=== PATIENT | male | born 1955 | race Caucasian/White ===

== ENCOUNTER 2018-12-09 16:56 | Inpatient (IN) | payer OTHER, SELFPAY ==
[~2018-12-09 16:56] MED LIST: ISOVUE-370 76%-LOCM 1 ML ONE
[2018-12-09] MEDS ORDERED: Adacel (T-DAP) 0.5 ML SYRINGE ONE ×2 (17:05→17:10)
[2018-12-09 17:10] LABS: #Basophils 0.1 thou/uL (0.0-0.2); #Eosinphils 0.5 thou/uL (0.0-0.7); #Lymphocytes 2.8 thou/uL (1.20-3.40); #Monocytes 0.6 thou/uL (0.11-0.59); #Neutrophils 7.6 thou/uL (1.40-6.50); %Basophils 0.5 % (0.0-1.0); %Lymphocytes 24.3 % (21.0-51.0); %Neutrophils 66.2 % (42.0-75.0); Hemoglobin 14.6 g/dL (14.0-18.0); Mean Corpuscular HGB CONC 33.6 g/dL (32.0-36.0); Mean Corpuscular Hemoglobin 32.3 pg (27.0-31.0); Mean Corpuscular Volume 96.1 fL (78.0-98.0); Mean Platelet Volume 7.3 fL (7.4-10.4); Platelet Count 380 thou/uL (130-400); RBC Distribution Width 12.2 % (11.5-14.5); Red Blood Cell (RBC) Count 4.52 mill/uL (4.70-6.10); White Blood Cell (WBC) Count 11.5 thou/uL (4.8-10.8)
[2018-12-09 17:55] LABS: ALT (SGPT) 22 U/L (8-55); AST (SGOT) 20 U/L (5-34); Albumin 4.1 g/dL (3.4-4.8); Alkaline Phosphatase 57 U/L (40-150); Anion Gap 13 mmol/L (10-20); BUN (Urea Nitrogen) 10 mg/dL (8.4-25.7); Bilirubin, Total 0.5 mg/dL (0.2-1.2); CK (CPK) 119 U/L (30-200); Calc. Creatinine Clearance 0 mL/min (70-130); Calcium 9.5 mg/dL (7.8-10.44); Carbon Dioxide 23 mmol/L (23-31); Chloride 105 mmol/L (98-107); Estimated GFR-MDRD 69; Globulin 2.9 g/dL (2.4-3.5); Glucose 213 mg/dL (80-115); Lipase 25 U/L (8-78); Potassium 4.2 mmol/L (3.5-5.1); Sodium 137 mmol/L (136-145)
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
[2018-12-09] MEDS ORDERED: Ondansetron PF 4 MG/2 ML Vial ONE (18:06)
[2018-12-09] MEDS ORDERED: Morphine 4 MG/ML VIAL ONE (18:06)
[2018-12-09 18:12] LABS: Bilirubin Negative (Negative); Blood, Urine Negative (Negative); Clarity Clear (Clear); Glucose, Urine (Dipstick) 100 mg/dL (Negative); Leukocyte Negative Leu/uL (Negative); Nitrite Negative (Negative); Protein, Urine (Dipstick) Negative (Neg-Trace); Urobilinogen Normal mg/dL (Less than 2)
[2018-12-09] MEDS ORDERED: traMADol HCl 50 MG TAB ONE (18:49)
[2018-12-09] MEDS ORDERED: Triple Antibiotic Oint 1 GM Packet ONE (18:49)
[2018-12-09] MEDS ORDERED: Lidocaine 1% (PF) 30 ML VIAL ONE (18:49)
[2018-12-09] MEDS ORDERED: Promethazine HCl 25 MG/ML VIAL IM PRN (19:17)
[2018-12-09] MEDS ORDERED: hydrALAZINE 20 MG/ML VIAL SLOW IVP PRN (19:17)
[2018-12-09] MEDS ORDERED: Ondansetron PF 4 MG/2 ML Vial IVP PRN (19:17)
[2018-12-09] MEDS ORDERED: Dextrose 5% in Water 1,000 ML IV PRN (19:17)
[2018-12-09] MEDS ORDERED: Dextrose 50% Abboject 50 ML SYRINGE SLOW IVP PRN (19:17)
[2018-12-09] MEDS ORDERED: Morphine 2 MG/ML SYRINGE SLOW IVP PRN (19:17)
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
[2018-12-09] MEDS ORDERED: Cyclobenzaprine 10 MG TAB PO PRN (19:20)
[2018-12-09] MEDS ORDERED: traMADol HCl 50 MG TAB PO PRN (19:20)
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
[2018-12-09 19:49] LABS: Amphetamine Not Detected (NotDetected); Barbiturates Screen Not Detected (NotDetected); Benzodiazepine Screen Not Detected (NotDetected); Cocaine Metabolite Screen Not Detected (NotDetected); Medtox Control Line Valid? VALID (VALID); Medtox Reader # READER 1; Methadone Not Detected (NotDetected); Methamphetamine Not Detected (NotDetected); Opiate Screen Not Detected (NotDetected); Oxycodone Screen Not Detected (NotDetected); Phencyclidine (PCP) Not Detected (NotDetected); THC/Cannabinoid Screen Not Detected (NotDetected); Tricyclic Screen Not Detected (NotDetected)
--- NOTE | 2018-12-09 19:56 | RAD ---
XR Hand Rt 3 View STANDARD HISTORY: Trauma to hand COMPARISON: None. FINDINGS: There are mild arthritic changes of the hand demonstrated. Also some arthritic changes of t he wrist. 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 There are no signs of fracture or dislocation. There is a small bony density on the dorsal side of the distal interphalange al joint of the middle finger. I would favor that this is related to some arthritic change in this region rather than an avulsion fracture but clinical correlation as to any pain specifically related to this area is recommended. IMPRESSION: Findings as described above.
[2018-12-09] MEDS: Ibuprofen 800 MG TAB PO SCH (21:20)
[2018-12-09] MEDS: Gabapentin 100 MG CAP PO SCH (21:20)
[2018-12-09] MEDS: Senokot S 8.6-50 MG TAB PO SCH (21:20)
[2018-12-09] MEDS: Triple Antibiotic Ointment 30 GM TUBE TOP SCH (21:42)
[2018-12-09] MEDS: Silver Sulfadiazine 1% Cream 50 GM TUBE TP SCH (21:43)
[2018-12-09 21:52] VITALS: BMI 23.7
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
[2018-12-09] MEDS: Acetaminophen 500 MG TAB PO SCH (23:18)
[2018-12-09] MEDS: traMADol HCl 50 MG TAB PO SCH (23:18)
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
[2018-12-10 04:19] LABS: #Eosinphils 0.1 thou/uL (0.0-0.7); #Lymphocytes 1.5 thou/uL (1.20-3.40); #Monocytes 0.8 thou/uL (0.11-0.59); #Neutrophils 13.3 thou/uL (1.40-6.50); %Eosinophils 0.3 % (0.0-10.0); %Lymphocytes 9.8 % (21.0-51.0); %Monocytes 5.1 % (0.0-10.0); %Neutrophils 84.7 % (42.0-75.0); Hemoglobin 13.4 g/dL (14.0-18.0); Mean Corpuscular HGB CONC 33.5 g/dL (32.0-36.0); Mean Corpuscular Hemoglobin 32.4 pg (27.0-31.0); Mean Corpuscular Volume 96.9 fL (78.0-98.0); Mean Platelet Volume 7.5 fL (7.4-10.4); Platelet Count 279 thou/uL (130-400); RBC Distribution Width 12.3 % (11.5-14.5); Red Blood Cell (RBC) Count 4.12 mill/uL (4.70-6.10); White Blood Cell (WBC) Count 15.7 thou/uL (4.8-10.8)
[2018-12-10 04:32] LABS: Phosphorus 4.3 mg/dL (2.3-4.7)
[2018-12-10 04:36] LABS: Anion Gap 11 mmol/L (10-20); BUN (Urea Nitrogen) 14 mg/dL (8.4-25.7); Calc. Creatinine Clearance 62 mL/min (70-130); Carbon Dioxide 25 mmol/L (23-31); Chloride 102 mmol/L (98-107); Estimated GFR-MDRD 64; Glucose 247 mg/dL (80-115); Magnesium 2.2 mg/dL (1.6-2.6); Potassium 4.3 mmol/L (3.5-5.1); Sodium 134 mmol/L (136-145)
[2018-12-10] MEDS: traMADol HCl 50 MG TAB PO SCH ×4 (05:40→23:31)
[2018-12-10] MEDS: Acetaminophen 500 MG TAB PO SCH ×4 (05:41→23:31)
[2018-12-10] MEDS: Ibuprofen 800 MG TAB PO SCH ×3 (05:42→21:31)
--- NOTE | 2018-12-10 08:06 | RAD ---
XR Shoulder Lt 3 View STANDARD History: Pain. Trauma. Comparison: CT prior day Findings: Essentially nondisplaced left scapular body fracture. Normal glenohumeral alignment. Fractu re does extend to the articular surface of the glenoid. Similar appearance left rib fractures without significant pneumothorax. Impression: Nondisplaced left scapular body fracture extending to the anterior inferior articular arturo face of the glenoid.
[2018-12-10] MEDS ORDERED: Dextrose 50% Abboject 50 ML SYRINGE IVP PRN (08:16)
[2018-12-10] MEDS ORDERED: Dextrose 5% in Water 1,000 ML IV PRN (08:16)
[2018-12-10] MEDS: Silver Sulfadiazine 1% Cream 50 GM TUBE TP SCH (08:24)
[2018-12-10] MEDS: Triple Antibiotic Ointment 30 GM TUBE TOP SCH ×2 (08:24→21:09)
[2018-12-10] MEDS: Polyethylene Glycol 3350 17 GM Packet PO SCH (08:41)
[2018-12-10] MEDS: Senokot S 8.6-50 MG TAB PO SCH ×2 (08:42→21:08)
[2018-12-10] MEDS: Zinc Sulfate 220 MG CAP PO SCH (08:42)
[2018-12-10] MEDS: Enoxaparin Sodium 40 MG/0.4 ML SYRINGE SC SCH (08:42)
[2018-12-10] MEDS: Ascorbic Acid 500 mg Chewable Tablet PO SCH (08:42)
[2018-12-10] MEDS: Gabapentin 100 MG CAP PO SCH ×3 (08:42→21:08)
[2018-12-10 08:51] LABS: Hemoglobin A1c 8.8 % (4.0-6.0)
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
[2018-12-10] MEDS ORDERED: CEFAZOLIN 2 GM in Premix Bag 1 BAG IVPB SCH (09:45)
[2018-12-10] MEDS ORDERED: CEFAZOLIN 2 GM, Admixture Fee 1 EACH in Sodium Chloride 0.9% 100 ML IVPB SCH (10:00)
[2018-12-10] MEDS: Sodium Chloride 0.9% 1,000 ML IV SCH ×3 (11:05→23:36)
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
[2018-12-10] MEDS: Bacitracin 1 PK TOP SCH ×2 (14:05→21:09)
[2018-12-10] MEDS: Insulin Regular 300 UNITS/3 ML VIAL SC PRN (21:31)
[2018-12-10] MEDS: Silver Sulfadiazine 1% Cream 50 GM JAR TOP SCH (21:35)
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
[2018-12-11] MEDS: Ibuprofen 800 MG TAB PO SCH ×3 (05:34→22:43)
[2018-12-11] MEDS: Acetaminophen 500 MG TAB PO SCH ×4 (05:34→23:55)
[2018-12-11] MEDS: traMADol HCl 50 MG TAB PO SCH ×3 (05:34→18:13)
[2018-12-11] MEDS: Sodium Chloride 0.9% 1,000 ML IV SCH (06:04)
[2018-12-11 06:33] LABS: Anion Gap 12 mmol/L (10-20); BUN (Urea Nitrogen) 14 mg/dL (8.4-25.7); Calc. Creatinine Clearance 84 mL/min (70-130); Calcium 8.1 mg/dL (7.8-10.44); Carbon Dioxide 21 mmol/L (23-31); Chloride 104 mmol/L (98-107); Estimated GFR-MDRD 90; Glucose 112 mg/dL (80-115); Phosphorus 2.8 mg/dL (2.3-4.7); Potassium 3.9 mmol/L (3.5-5.1); Sodium 133 mmol/L (136-145)
[2018-12-11] MEDS: Ascorbic Acid 500 mg Chewable Tablet PO SCH (09:15)
[2018-12-11] MEDS: Polyethylene Glycol 3350 17 GM Packet PO SCH (09:15)
[2018-12-11] MEDS: Zinc Sulfate 220 MG CAP PO SCH (09:15)
[2018-12-11] MEDS: Enoxaparin Sodium 40 MG/0.4 ML SYRINGE SC SCH (09:15)
[2018-12-11] MEDS: Senokot S 8.6-50 MG TAB PO SCH ×2 (09:15→22:40)
[2018-12-11] MEDS: Gabapentin 100 MG CAP PO SCH ×3 (09:15→22:40)
[2018-12-11] MEDS: Bacitracin 1 PK TOP SCH ×2 (09:22→14:53)
[2018-12-11] MEDS: Silver Sulfadiazine 1% Cream 50 GM JAR TOP SCH ×2 (09:23→22:43)
[2018-12-11] MEDS: Triple Antibiotic Ointment 30 GM TUBE TOP SCH ×2 (11:12→22:44)
[2018-12-11] MEDS: metFORMIN XR 500 MG TAB PO SCH (16:47)
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
[2018-12-11] MEDS: Triple Antibiotic Oint 1 GM Packet TOP SCH (22:42)
[2018-12-11] MEDS: Insulin Regular 300 UNITS/3 ML VIAL SC PRN (23:55)
[2018-12-12 04:51] LABS: #Basophils 0.1 thou/uL (0.0-0.2); #Eosinphils 0.7 thou/uL (0.0-0.7); #Lymphocytes 1.8 thou/uL (1.20-3.40); #Monocytes 0.8 thou/uL (0.11-0.59); #Neutrophils 5.7 thou/uL (1.40-6.50); %Basophils 0.6 % (0.0-1.0); %Eosinophils 7.4 % (0.0-10.0); %Monocytes 9.3 % (0.0-10.0); %Neutrophils 62.9 % (42.0-75.0); Mean Corpuscular HGB CONC 34.8 g/dL (32.0-36.0); Mean Corpuscular Hemoglobin 33.7 pg (27.0-31.0); Mean Corpuscular Volume 96.8 fL (78.0-98.0); Mean Platelet Volume 7.7 fL (7.4-10.4); Platelet Count 210 thou/uL (130-400); Red Blood Cell (RBC) Count 3.26 mill/uL (4.70-6.10)
[2018-12-12 05:07] LABS: Anion Gap 11 mmol/L (10-20); BUN (Urea Nitrogen) 11 mg/dL (8.4-25.7); Calc. Creatinine Clearance 91 mL/min (70-130); Calcium 8.5 mg/dL (7.8-10.44); Carbon Dioxide 23 mmol/L (23-31); Chloride 109 mmol/L (98-107); Estimated GFR-MDRD Greater than 90; Glucose 120 mg/dL (80-115); Magnesium 2.2 mg/dL (1.6-2.6); Phosphorus 2.4 mg/dL (2.3-4.7); Sodium 139 mmol/L (136-145)
[2018-12-12] MEDS: Ibuprofen 800 MG TAB PO SCH ×3 (06:30→21:45)
[2018-12-12] MEDS: traMADol HCl 50 MG TAB PO SCH ×5 (06:30→23:54)
[2018-12-12] MEDS: Acetaminophen 500 MG TAB PO SCH ×4 (06:30→23:54)
[2018-12-12] MEDS: Polyethylene Glycol 3350 17 GM Packet PO SCH (08:37)
[2018-12-12] MEDS: Enoxaparin Sodium 40 MG/0.4 ML SYRINGE SC SCH (08:37)
[2018-12-12] MEDS: Ascorbic Acid 500 mg Chewable Tablet PO SCH (08:38)
[2018-12-12] MEDS: Senokot S 8.6-50 MG TAB PO SCH ×2 (08:38→21:44)
[2018-12-12] MEDS: Zinc Sulfate 220 MG CAP PO SCH (08:38)
[2018-12-12] MEDS: Triple Antibiotic Oint 1 GM Packet TOP SCH ×3 (08:38→21:45)
[2018-12-12] MEDS: Gabapentin 100 MG CAP PO SCH ×3 (08:38→21:44)
[2018-12-12] MEDS: Silver Sulfadiazine 1% Cream 50 GM JAR TOP SCH ×2 (08:38→21:50)
[2018-12-12] MEDS: Triple Antibiotic Ointment 30 GM TUBE TOP SCH ×2 (08:39→21:47)
[2018-12-12] MEDS ORDERED: Cyclobenzaprine 10 MG TAB PO PRN (10:30)
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
[2018-12-12] MEDS: Insulin Regular 300 UNITS/3 ML VIAL SC PRN ×2 (11:46→21:52)
[2018-12-12] MEDS: cefTRIAXone\\ROCEPHIN 2 GM in Sodium Chloride 0.9% 100 ML IVPB SCH (11:47)
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
[2018-12-12] MEDS: metFORMIN XR 500 MG TAB PO SCH (18:06)
[2018-12-12] MEDS: Vancomycin HCl 1 GM in Premix Bag 1 BAG IVPB SCH (18:06)
[2018-12-12] MEDS ORDERED: Dextrose 50% Abboject 50 ML SYRINGE SLOW IVP PRN (19:27)
[2018-12-12] MEDS ORDERED: Dextrose 5% in Water 1,000 ML IV PRN (19:27)
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
[2018-12-13 04:47] LABS: Band 3 % (5-11); Eosinophils 10 % (0-10); Hemoglobin 11.6 g/dL (14.0-18.0); Lymphocytes 26 % (21-51); MDiff Complete? YES; Mean Corpuscular HGB CONC 34.1 g/dL (32.0-36.0); Mean Corpuscular Hemoglobin 33.2 pg (27.0-31.0); Mean Corpuscular Volume 97.3 fL (78.0-98.0); Monocytes 7 % (0-10); Neutrophil 54 % (42-75); Platelet Count 265 thou/uL (130-400); Platelet Morphology Comment Appears Adequate; RBC Distribution Width 12.2 % (11.5-14.5); Red Blood Cell (RBC) Count 3.48 mill/uL (4.70-6.10); White Blood Cell (WBC) Count 9.9 thou/uL (4.8-10.8)
[2018-12-13 04:56] LABS: Anion Gap 14 mmol/L (10-20); BUN (Urea Nitrogen) 14 mg/dL (8.4-25.7); Calc. Creatinine Clearance 87 mL/min (70-130); Calcium 9.3 mg/dL (7.8-10.44); Carbon Dioxide 25 mmol/L (23-31); Chloride 103 mmol/L (98-107); Estimated GFR-MDRD Greater than 90; Glucose 80 mg/dL (80-115); Magnesium 2.2 mg/dL (1.6-2.6); Phosphorus 3.6 mg/dL (2.3-4.7); Potassium 3.8 mmol/L (3.5-5.1); Sodium 138 mmol/L (136-145)
[2018-12-13] MEDS: Vancomycin HCl 1 GM in Premix Bag 1 BAG IVPB SCH ×2 (05:53→18:02)
[2018-12-13] MEDS: Acetaminophen 500 MG TAB PO SCH ×4 (05:54→23:57)
[2018-12-13] MEDS: traMADol HCl 50 MG TAB PO SCH ×4 (05:55→23:58)
[2018-12-13] MEDS: Ibuprofen 800 MG TAB PO SCH ×3 (05:55→21:45)
[2018-12-13] MEDS: Senokot S 8.6-50 MG TAB PO SCH ×2 (09:19→21:45)
[2018-12-13] MEDS: Lisinopril 10 MG TAB PO SCH (09:19)
[2018-12-13] MEDS: Zinc Sulfate 220 MG CAP PO SCH (09:20)
[2018-12-13] MEDS: Gabapentin 100 MG CAP PO SCH ×3 (09:20→21:45)
[2018-12-13] MEDS: Ascorbic Acid 500 mg Chewable Tablet PO SCH (09:20)
[2018-12-13] MEDS: Silver Sulfadiazine 1% Cream 50 GM JAR TOP SCH ×2 (09:20→21:46)
[2018-12-13] MEDS: Enoxaparin Sodium 40 MG/0.4 ML SYRINGE SC SCH (09:20)
[2018-12-13] MEDS: Triple Antibiotic Oint 1 GM Packet TOP SCH ×3 (09:20→21:45)
[2018-12-13] MEDS: Polyethylene Glycol 3350 17 GM Packet PO SCH (09:20)
[2018-12-13] MEDS: Triple Antibiotic Ointment 30 GM TUBE TOP SCH ×2 (09:21→21:48)
[2018-12-13] MEDS: cefTRIAXone\\ROCEPHIN 2 GM in Sodium Chloride 0.9% 100 ML IVPB SCH (12:09)
[2018-12-13] MEDS: Insulin Regular 300 UNITS/3 ML VIAL SC PRN (12:10)
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
[2018-12-13] MEDS: metFORMIN XR 500 MG TAB PO SCH (18:02)
[2018-12-14] MEDS: Insulin Regular 300 UNITS/3 ML VIAL SC PRN ×3 (00:01→17:17)
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
[2018-12-14 05:38] LABS: #Lymphocytes 2.1 thou/uL (1.20-3.40); #Monocytes 0.9 thou/uL (0.11-0.59); #Neutrophils 5.5 thou/uL (1.40-6.50); %Basophils 0.4 % (0.0-1.0); %Eosinophils 10.9 % (0.0-10.0); %Lymphocytes 21.7 % (21.0-51.0); %Monocytes 9.5 % (0.0-10.0); %Neutrophils 57.5 % (42.0-75.0); Hemoglobin 11.2 g/dL (14.0-18.0); Mean Corpuscular HGB CONC 33.3 g/dL (32.0-36.0); Mean Platelet Volume 9.4 fL (7.4-10.4); Platelet Count 194 thou/uL (130-400); RBC Distribution Width 12.2 % (11.5-14.5); White Blood Cell (WBC) Count 9.6 thou/uL (4.8-10.8)
[2018-12-14] MEDS: Ibuprofen 800 MG TAB PO SCH ×3 (05:41→21:22)
[2018-12-14] MEDS: Acetaminophen 500 MG TAB PO SCH ×3 (05:42→17:19)
[2018-12-14] MEDS: traMADol HCl 50 MG TAB PO SCH ×3 (05:42→17:19)
[2018-12-14 05:58] LABS: Vancomycin, Trough 12.7 ug/mL
[2018-12-14 06:00] LABS: Anion Gap 14 mmol/L (10-20); BUN (Urea Nitrogen) 12 mg/dL (8.4-25.7); Calc. Creatinine Clearance 90 mL/min (70-130); Calcium 9.3 mg/dL (7.8-10.44); Carbon Dioxide 26 mmol/L (23-31); Chloride 103 mmol/L (98-107); Estimated GFR-MDRD Greater than 90; Glucose 95 mg/dL (80-115); Magnesium 2.3 mg/dL (1.6-2.6); Phosphorus 3.9 mg/dL (2.3-4.7); Sodium 139 mmol/L (136-145)
[2018-12-14] MEDS: Vancomycin HCl 1 GM in Premix Bag 1 BAG IVPB SCH ×2 (06:24→17:20)
[2018-12-14] MEDS: Gabapentin 100 MG CAP PO SCH ×3 (08:16→20:05)
[2018-12-14] MEDS: Zinc Sulfate 220 MG CAP PO SCH (08:16)
[2018-12-14] MEDS: Ascorbic Acid 500 mg Chewable Tablet PO SCH (08:16)
[2018-12-14] MEDS: Senokot S 8.6-50 MG TAB PO SCH ×2 (08:16→20:05)
[2018-12-14] MEDS: Polyethylene Glycol 3350 17 GM Packet PO SCH (08:16)
[2018-12-14] MEDS: Triple Antibiotic Oint 1 GM Packet TOP SCH ×3 (08:16→20:05)
[2018-12-14] MEDS: Enoxaparin Sodium 40 MG/0.4 ML SYRINGE SC SCH (08:17)
[2018-12-14] MEDS: Lisinopril 10 MG TAB PO SCH (08:17)
[2018-12-14] MEDS: Triple Antibiotic Ointment 30 GM TUBE TOP SCH ×2 (08:18→20:06)
[2018-12-14] MEDS: Silver Sulfadiazine 1% Cream 50 GM JAR TOP SCH ×2 (08:19→20:06)
[2018-12-14] MEDS: cefTRIAXone\\ROCEPHIN 2 GM in Sodium Chloride 0.9% 100 ML IVPB SCH (11:32)
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
[2018-12-14] MEDS: metFORMIN XR 500 MG TAB PO SCH (17:19)
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
[2018-12-15] MEDS: traMADol HCl 50 MG TAB PO SCH ×3 (00:26→11:24)
[2018-12-15] MEDS: Acetaminophen 500 MG TAB PO SCH ×3 (00:26→11:25)
[2018-12-15] MEDS: Insulin Regular 300 UNITS/3 ML VIAL SC PRN ×2 (00:41→11:53)
[2018-12-15] MEDS: Ibuprofen 800 MG TAB PO SCH ×2 (05:51→14:46)
[2018-12-15] MEDS: Vancomycin HCl 1 GM in Premix Bag 1 BAG IVPB SCH (05:52)
[2018-12-15] MEDS: Senokot S 8.6-50 MG TAB PO SCH (08:16)
[2018-12-15] MEDS: Polyethylene Glycol 3350 17 GM Packet PO SCH (08:16)
[2018-12-15] MEDS: Gabapentin 100 MG CAP PO SCH ×2 (08:17→14:46)
[2018-12-15] MEDS: Ascorbic Acid 500 mg Chewable Tablet PO SCH (08:17)
[2018-12-15] MEDS: Lisinopril 10 MG TAB PO SCH (08:17)
[2018-12-15] MEDS: Zinc Sulfate 220 MG CAP PO SCH (08:18)
[2018-12-15] MEDS: Enoxaparin Sodium 40 MG/0.4 ML SYRINGE SC SCH (08:18)
[2018-12-15] MEDS: Triple Antibiotic Oint 1 GM Packet TOP SCH ×2 (08:18→14:50)
[2018-12-15] MEDS: Silver Sulfadiazine 1% Cream 50 GM JAR TOP SCH (08:24)
[2018-12-15] MEDS: Triple Antibiotic Ointment 30 GM TUBE TOP SCH (08:25)
[2018-12-15 16:21] VITALS: BP 142/82; TEMP 98.2
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
[2018-12-15] MEDS ORDERED: Amoxicillin/Potassium Clav 875 MG TAB PO SCH (21:00)
== END 2018-12-15 16:20 | disposition home or self-care (01) | DRG 184 ==
LOC: ERS 16:56 → SURG A 19:17
PROVIDERS: ADMIT Surgery; ATTEND Surgery
DX: S22.42XA Multiple fractures of ribs, left side, initial encounter for closed fracture (principal); S32.511A Fracture of superior rim of right pubis, initial encounter for closed fracture; L03.213 Periorbital cellulitis; S00.81XA Abrasion of other part of head, initial encounter; S80.812A Abrasion, left lower leg, initial encounter; H49.02 Third [oculomotor] nerve palsy, left eye; I10 Essential (primary) hypertension; R00.1 Bradycardia, unspecified; S42.102A Fracture of unspecified part of scapula, left shoulder, initial encounter for closed fracture; E11.65 Type 2 diabetes mellitus with hyperglycemia; V29.9XXA Motorcycle rider (driver) (passenger) injured in unspecified traffic accident, initial encounter; Y92.410 Unspecified street and highway as the place of occurrence of the external cause; Z87.891 Personal history of nicotine dependence
CPT/HCPCS: 12001; 36415; 36416; 51702; 70450; 71260; 72125; 72170; 74177; 80048; 80053; 80202; 80306; 80307; 81003; 82550; 83036; 83690; 83735; 84100; 85007; 85025; 85027; 87070; 87205; 90471; 90715; 93005; 94760; 96374; 96375; G0390; J0690; J0696; J1650; J1815; J2001; J2270; J2405; J3370; J3490; Q9966

== ENCOUNTER 2018-12-22 10:39 | Outpatient (CLI) | payer SELFPAY ==
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
== END 2018-12-22 10:40 | disposition home or self-care (01) ==
LOC: RAD 10:39
PROVIDERS: ATTEND Nurse Practitioner Acute Care
DX: S22.42XA Multiple fractures of ribs, left side, initial encounter for closed fracture (principal); S42.112D Displaced fracture of body of scapula, left shoulder, subsequent encounter for fracture with routine healing; R91.8 Other nonspecific abnormal finding of lung field; Z98.890 Other specified postprocedural states
CPT/HCPCS: 71046